=== PATIENT | female | born 1995 | race Caucasian/White ===

== ENCOUNTER 2018-12-25 20:36 | Emergency (ER) | payer OTHER ==
[~2018-12-25] VITALS: Ht 165.1 cm; Wt 86.2 kg
[~2018-12-25 20:36] MED LIST: ALLEGRA ALLERG180 MG PO; CLOBET30L TOP; FAMO20 PO; METPRE4DP PO; PROM25 PO; Pepcid20 MG PO; Pseudoephedrine30 MG PO; Zithromax250 MG PO
== END 2018-12-25 23:12 | disposition home or self-care (01) ==
LOC: ER 20:36
DX: S61.412A Laceration without foreign body of left hand, initial encounter (principal); Z88.2 Allergy status to sulfonamides; W45.8XXA Other foreign body or object entering through skin, initial encounter
CPT/HCPCS: 12001; 73120; 90471; 90714; 99283-25

== ENCOUNTER 2021-04-07 17:46 | Emergency (ER) | payer OTHER ==
[~2021-04-07] VITALS: Ht 165.1 cm; Wt 95.2 kg
[2021-04-07 18:11] LABS: Source, Urine Clean Catch
[2021-04-07 18:23] LABS: Appearance, Urine Clear (Clear); Bilirubin, Urine Neg (Neg); Blood, Urine Neg (Neg); Color, Urine Yellow (P-Yellow); Glucose Qualitative, Urine Neg (Neg); Ketones, Urine Neg (Neg); Leukocyte Esterase, Urine Neg (Neg); Nitrite, Urine Neg (Neg); Protein, Urine Neg (Neg); Specific Gravity, Urine 1.015 (1.003-1.022); Urobilinogen, Urine NORM (Normal)
== END 2021-04-07 19:24 | disposition home or self-care (01) ==
LOC: ER 17:46
PROVIDERS: Physician Assistant
DX: R10.2 Pelvic and perineal pain (principal); M54.50 Low back pain, unspecified; G89.29 Other chronic pain; Z88.2 Allergy status to sulfonamides
CPT/HCPCS: 81003; 81025; 99283

== ENCOUNTER → 2023-10-05 | Outpatient (CLI) | payer OTHER | END | disposition home or self-care (01) | LOC: LAB 12:46 → LAB SHORT 12:46 | DX: J02.9 Acute pharyngitis, unspecified (principal) | CPT/HCPCS: 87081 ==

== ENCOUNTER 2024-03-07 07:55 | Day surgery (SDC) | payer OTHER ==
[~2024-03-07] VITALS: Ht 165.1 cm; Wt 90.5 kg
[~2024-03-07 07:55] MED LIST changes: +Dexamethasone Sod Phos 10 MG/ML 1ML VIAL ONE; +FentaNYL Citrate 50 MCG/ML 2 ML Injection ONE; +Lactated Ringer's 1,000 ML IV ONE; +Midazolam HCl 1MG / ML 2ML Vial ONE; +Ondansetron HCl 2 MG / ML 2ML Vial ONE; +Rocuronium Bromide 10 MG/ML 5ML Injection IV ONE; +Sugammadex Sodium 200 MG/2ML SDV (100 MG/ML) ONE; +propofoL 20 ML IV ONE
[2024-03-07] MEDS ORDERED: CITALOPRAM HBR20 M9 PO (08:08)
[2024-03-07] MEDS ORDERED: Lactated Ringer's 1,000 ML IV ONE ×2 (08:25→10:11)
[2024-03-07] MEDS ORDERED: EPINEPhrine HCl 1 MG / ML 30ML Vial ONE (09:02)
--- NOTE | 2024-03-07 09:38 | NUR ---
03/07/24 0938 Sirisha Larsen 5ML OF LIDOCAINE 2% WITH EPI 1:200,000 DILUTED 1:1 WITH NORMAL SALINE TO MAKE LIDOCAINE 1% WITH EPI 1:400,000 FOR INJECTION AT THE OPSITE. 30ML OF EPI (1MG/ML) POURED ONTO FIELD TO SOAK PLEDGETS FOR NASAL PACKING.
[2024-03-07] MEDS ORDERED: Lidocaine 2%-Epineph 1:200000 20 ML SDV INJ ONE ×2 (09:42)
[2024-03-07] MEDS ORDERED: Sodium Chloride 0.9% Inj 10 ML Vial INJ ONE ×2 (09:42)
[2024-03-07] MEDS ORDERED: Sugammadex Sodium 200 MG/2ML SDV (100 MG/ML) ONE (10:06)
[2024-03-07] MEDS ORDERED: propofoL 20 ML IV ONE (10:11)
[2024-03-07] MEDS ORDERED: FentaNYL Citrate 50 MCG/ML 2 ML Injection ONE (10:37)
[2024-03-07] MEDS ORDERED: Ondansetron HCl 2 MG / ML 2ML Vial ONE (10:45)
--- NOTE | 2024-03-07 10:50 | NUR ---
03/07/24 1050 Shahrzad Stafford PT RECEIVED 25MCG OF FENTANYL VIA IV, PUSHED SLOWLY. PT STATED THAT HER PAIN LEVEL WAS AT A 7/10. AFTER REASSESSING PT'S PAIN LEVEL SHE SAID THE MEDICATION WAS EFFECTIVE AND HER LEVEL WAS AT A 5-6/10, WITH SOME IMPROVEMENT.
[2024-03-07 11:29] VITALS: BP 105/68
[2024-03-07] MEDS ORDERED: Metoclopramide HCl 5MG / ML 2ML Vial ONE (11:33)
== END 2024-03-07 11:50 | disposition home or self-care (01) ==
LOC: ORSCSDS 07:55
PROVIDERS: Otolaryngology
PROC: 09BM0ZZ Excision of Nasal Septum, Open Approach (ICD-10-PCS; principal; 2024-03-07 09:00)
PROC: 09SL0ZZ Reposition Nasal Turbinate, Open Approach (ICD-10-PCS; principal; 2024-03-07 09:00)
DX: J34.2 Deviated nasal septum (principal); J34.3 Hypertrophy of nasal turbinates; J30.89 Other allergic rhinitis; E66.9 Obesity, unspecified; Z68.33 Body mass index [BMI] 33.0-33.9, adult; F32.A Depression, unspecified; Z79.899 Other long term (current) drug therapy
CPT/HCPCS: J0171; J1100; J2250; J2405; J2704; J2765; J3010; J7120

== ENCOUNTER 2024-04-11 06:42 | Day surgery (SDC) | payer OTHER ==
[2024-04-11] VITALS (17 sets, daily range): BP systolic 99–131; BP diastolic 54–92
[~2024-04-11] VITALS: Ht 165.1 cm; Wt 92.0 kg
[~2024-04-11 06:42] MED LIST changes: +CITALOPRAM HBR20 M9 PO; -Dexamethasone Sod Phos 10 MG/ML 1ML VIAL ONE; -FentaNYL Citrate 50 MCG/ML 2 ML Injection ONE; -Lactated Ringer's 1,000 ML IV ONE; -Midazolam HCl 1MG / ML 2ML Vial ONE; +NS 500 ML IV SCH; -Ondansetron HCl 2 MG / ML 2ML Vial ONE; -Rocuronium Bromide 10 MG/ML 5ML Injection IV ONE; -Sugammadex Sodium 200 MG/2ML SDV (100 MG/ML) ONE; -propofoL 20 ML IV ONE
--- NOTE | 2024-04-11 07:21 | NUR ---
Patient confirms NPO status and agrees with scheduled surgery. History, Chart, Medications and Allergies reviewed before start of procedure. Reports taking all of her colon prep with clear yellow results. Patient has ride arranged home with Jori, who is at bedside.
[2024-04-11] MEDS ORDERED: propofoL 40 ML IV ONE (07:25)
[2024-04-11] MEDS ORDERED: Midazolam HCl 1MG / ML 2ML Vial ONE (07:25)
--- NOTE | 2024-04-11 07:29 | NUR ---
04/11/24 0729 Cecilia Bell CONFIRMED AND REVIEWED H&P, MEDCICATIONS, ALLERGIES, MEDICAL HISTORY, RESPIRATORY HISTORY, VITAL SIGNS, 3-LEAD EKG, CONSENTS, AND PHYSICIAN ORDERS. PATIENT CONFIRMS NPO STATUS AND AGREES WITH SCHEDULED PROCEDURE. MONITOR INTACT WITH CONTINUOUS PULSE OXIMETRY, CAPNOGRAPHY, 3-LEAD EKG, INTERMITTENT BP. SUPPLEMENTAL O2 TO BE TITRATED THROUGHOUT PROCEDURE TO MAINTAIN O2 SATURATION ABOVE 90%. PATIENT DETERMINED TO BE ASA APPROPRIATE FOR PROPOFOL SEDATION PRIOR TO START OF PROCEDURE BY .MALLAMPATI CLASS 2 AIRWAY: COMPLETE VISUALIZATION OF THE UVULA.
--- NOTE | 2024-04-11 08:27 | NUR ---
Discharge instructions reviewed with patient. Patient verbalizes understanding. Copy given to patient to take home.
== END 2024-04-11 08:29 | disposition home or self-care (01) ==
LOC: ORSCMMR 06:42 → ORD 07:30 → ORSCMMR 08:29
PROVIDERS: Internal Medicine Gastroenterology
PROC: 0DBB8ZX Excision of Ileum, Via Natural or Artificial Opening Endoscopic, Diagnostic (ICD-10-PCS; principal; 2024-04-11 07:30)
PROC: 0DBL8ZX Excision of Transverse Colon, Via Natural or Artificial Opening Endoscopic, Diagnostic (ICD-10-PCS; principal; 2024-04-11 07:30)
PROC: 0DBN8ZX Excision of Sigmoid Colon, Via Natural or Artificial Opening Endoscopic, Diagnostic (ICD-10-PCS; principal; 2024-04-11 07:30)
PROC: 0DBK8ZX Excision of Ascending Colon, Via Natural or Artificial Opening Endoscopic, Diagnostic (ICD-10-PCS; principal; 2024-04-11 07:30)
DX: R10.33 Periumbilical pain (principal); R19.4 Change in bowel habit; F32.A Depression, unspecified; Z79.899 Other long term (current) drug therapy
CPT/HCPCS: 88305; J2250; J2704; J7030

== ENCOUNTER 2024-10-13 07:03 | Emergency (ER) | payer OTHER ==
[~2024-10-13] VITALS: Ht 165.1 cm; Wt 92.5 kg
[~2024-10-13 07:03] MED LIST changes: -NS 500 ML IV SCH
[2024-10-13 07:15] VITALS: BP 154/97
[2024-10-13 08:04] LABS: BASOPHILS ABSOLUTE AUTO 0.04 K/mm3 (0.00-0.23); BASOPHILS PERCENT AUTO 1 % (0-2); EOSINOPHILS ABSOLUTE AUTO 0.04 K/mm3 (0.00-0.68); EOSINOPHILS PERCENT AUTO 1 % (0-6); Hematocrit 34.2 % (33.0-51.0); Hemoglobin 11.1 g/dL (11.5-16.0); IMMATURE GRAN PERCENT AUTO 0 % (0-1); LYMPHOCYTES ABSOLUTE AUTO 1.27 K/mm3 (0.84-5.20); LYMPHOCYTES PERCENT AUTO 28 % (21-46); MONOCYTES ABSOLUTE AUTO 0.25 K/mm3 (0.16-1.47); MONOCYTES PERCENT AUTO 6 % (4-13); Mean Corpuscular HGB 26.7 pg (26.0-34.0); Mean Corpuscular HGB Conc 32.5 g/dL (31.5-36.5); Mean Corpuscular Volume 82 fL (80-100); Mean Platelet Volume 10.9 fL (9.1-12.4); NEUTROPHILS ABSOLUTE AUTO 2.96 K/mm3 (1.96-9.15); NEUTROPHILS PERCENT AUTO 65 % (41-73); Platelet Count 262 K/mm3 (150-400); RDW Coefficient Variation 16.3 % (11.7-14.2); RDW Standard Deviation 49.1 fL (35.1-46.3); Red Blood Cell Count 4.15 M/mm3 (3.80-5.20); White Blood Cell Count 4.56 K/mm3 (4.00-11.30)
[2024-10-13 08:28] LABS: Albumin, Blood 3.9 g/dL (3.4-5.0); Albumin/Globulin Ratio 1.1 (0.8-1.8); Bilirubin, Total 0.3 mg/dL (0.1-1.0); Calcium, Blood 8.7 mg/dL (8.5-10.1); Creatinine, Blood 0.67 mg/dL (0.40-1.00); Globulin, Blood 3.4 g/dL (2.2-4.0); Potassium, Blood 3.5 mmol/L (3.5-5.5); Total Protein, Blood 7.3 g/dL (6.4-8.2)
== END 2024-10-13 09:39 | disposition home or self-care (01) ==
LOC: ER 07:03
PROVIDERS: Emergency Medicine
DX: O20.9 Hemorrhage in early pregnancy, unspecified (principal); Z79.899 Other long term (current) drug therapy; Z88.2 Allergy status to sulfonamides; Z3A.01 Less than 8 weeks gestation of pregnancy
CPT/HCPCS: 76801; 76817; 80053; 84702; 84703; 85025; 86900; 86901; 99284-25

== ENCOUNTER 2025-02-12 13:02 | Emergency (ER) | payer OTHER ==
[~2025-02-12] VITALS: Ht 165.1 cm; Wt 95.2 kg
[2025-02-12 13:09] VITALS: BP 144/95
[2025-02-12 13:41] LABS: BASOPHILS ABSOLUTE AUTO 0.06 K/mm3 (0.00-0.23); BASOPHILS PERCENT AUTO 1 % (0-2); EOSINOPHILS ABSOLUTE AUTO 0.08 K/mm3 (0.00-0.68); EOSINOPHILS PERCENT AUTO 1 % (0-6); Hematocrit 34.7 % (33.0-51.0); Hemoglobin 10.8 g/dL (11.5-16.0); IMMATURE GRAN ABSOLUTE AUTO 0.01 K/mm3 (0.00-0.10); IMMATURE GRAN PERCENT AUTO 0 % (0-1); LYMPHOCYTES ABSOLUTE AUTO 1.76 K/mm3 (0.84-5.20); LYMPHOCYTES PERCENT AUTO 27 % (21-46); MONOCYTES ABSOLUTE AUTO 0.41 K/mm3 (0.16-1.47); MONOCYTES PERCENT AUTO 6 % (4-13); Mean Corpuscular HGB Conc 31.1 g/dL (31.5-36.5); Mean Corpuscular Volume 83 fL (80-100); NEUTROPHILS ABSOLUTE AUTO 4.26 K/mm3 (1.96-9.15); NEUTROPHILS PERCENT AUTO 65 % (41-73); NRBC ABSOLUTE 0.00 K/mm3 (0.00-0.02); NRBC Auto 0.0 /100 WBC (0.0-0.2); Platelet Count 255 K/mm3 (150-400); RDW Coefficient Variation 17.2 % (11.7-14.2); RDW Standard Deviation 51.1 fL (35.1-46.3)
[2025-02-12 14:07] LABS: Alanine Aminotransfer (ALT/SGP 26 U/L (12-78); Albumin, Blood 3.9 g/dL (3.4-5.0); Albumin/Globulin Ratio 1.1 (0.8-1.8); Anion Gap 8 mmol/L (3-11); Aspartate Aminotrans (AST/SGOT 32 U/L (12-37); Beta HCG, Quantitative, Serum <1 mIU/mL (0-3); Bilirubin, Total 0.3 mg/dL (0.1-1.0); Blood Urea Nitrogen 9 mg/dL (8-24); CO2, Blood 23 mmol/L (21-32); Calcium, Blood 8.9 mg/dL (8.5-10.1); Chloride, Blood 110 mmol/L (98-108); Creatinine, Blood 0.76 mg/dL (0.40-1.00); Globulin, Blood 3.4 g/dL (2.2-4.0); Glucose, Blood 89 mg/dL (70-99); Potassium, Blood 3.8 mmol/L (3.5-5.5); Sodium, Blood 137 mmol/L (136-145); Total Protein, Blood 7.3 g/dL (6.4-8.2)
[2025-02-12] MEDS ORDERED: PRENATAL TABLE1 EAC2 PO (17:41)
== END 2025-02-12 17:46 | disposition home or self-care (01) ==
LOC: ER 13:02
PROVIDERS: Emergency Medicine
DX: Z32.02 Encounter for pregnancy test, result negative (principal); Z79.899 Other long term (current) drug therapy; Z88.2 Allergy status to sulfonamides
CPT/HCPCS: 76801; 76817; 80053; 84702; 85025; 99282-25